=== PATIENT | female | born 1955 | race Caucasian/White ===

== ENCOUNTER 2017-03-14 09:08 | Inpatient (IN) | payer BC, OTHER ==
[~2017-03-14] VITALS: Ht 162.6 cm; Wt 68.4 kg
[2017-03-14] MEDS ORDERED: KETOROLAC TROMETH 60MG/2ML VIAL IM ONE (10:00)
[2017-03-14] MEDS ORDERED: SODIUM CHLORIDE 0.9% 1,000 ML IV ONE (10:45)
[2017-03-14] MEDS ORDERED: ETOMIDATE (2MG/ML) 20ML VIAL IV ONE (11:15)
[2017-03-14 11:24] LABS: Basophils # (auto) 0 uL; CONDITION Y; Eosinophils # (auto) 0 uL; Hematocrit 37.6 % (36.0-46.0); Hemoglobin 12.9 g/dL (12.2-16.2); Lymphocytes # (auto) 0.6 uL; Lymphocytes % (auto) 4.2 % (10.0-50.0); Mean Corpuscular Hemoglobin 30.8 pg (28.0-32.0); Mean Corpuscular Hgb Conc. 34.3 g/dL (32.0-36.0); Mean Corpuscular Volume 89.7 fL (80.0-100.0); Mean Platelet Volume 8.7 fL (7.4-10.4); Monocytes # (auto) 0.7 uL; Monocytes % (auto) 4.6 % (0.0-12.0); Neutrophils # (auto) 12.9 uL; Neutrophils % (auto) 91.2 % (37.0-80.0); Platelet Count (auto) 247 10^3/uL (140-450); Red Cell Distribution Width 12.9 % (11.6-16.0); White Blood Cell 14.1 10^3/uL (4.4-10.8)
[2017-03-14 11:30] LABS: INR 0.96 (0.9-1.15); Partial Thromboplastin Time 23.1 sec (22.64-33.71); Prothrombin Time 10.5 sec (9.37-12.3)
[2017-03-14 11:35] LABS: Albumin 3.7 g/dL (3.4-5.0); BUN/Creatinine Ratio 23.8; Bilirubin, Total 0.6 mg/dL (0.2-1.0); Calcium 8.7 mg/dL (8.5-10.1); Potassium 3.3 mmol/L (3.5-5.1); Total Protein 6.7 g/dL (6.4-8.2)
[2017-03-14] MEDS ORDERED: MORPHINE SULF INJ 2 MG/ML SYRINGE 1ML IV ONE (11:45)
[2017-03-14] MEDS ORDERED: ONDANSETRON HCL 4 MG/2 ML VIAL IV ONE (11:45)
[2017-03-14] MEDS ORDERED: HYDROcodone-ACET 5/325MG TAB PO PRN (15:30)
[2017-03-14] MEDS ORDERED: ACETAMINOPHEN 500 MG TAB PO PRN (15:30)
[2017-03-14] MEDS ORDERED: LACTULOSE 20Gm/30ML SOLN PO PRN (15:30)
[2017-03-14] MEDS ORDERED: TEMAZEPAM 15 MG CAP PO PRN (15:30)
[2017-03-14] MEDS ORDERED: LORazepam 0.5 MG TAB PO PRN (15:30)
[2017-03-14] MEDS ORDERED: NITROGLYCERIN 0.4 MG SL TAB SL PRN (15:30)
[2017-03-14] MEDS ORDERED: PROMETHAZINE HCL 25 MG/ML 1ML IV PRN (15:30)
[2017-03-14] MEDS ORDERED: MORPHINE SULF INJ 2 MG/ML SYRINGE 1ML IV PRN (15:30)
[2017-03-14] MEDS: SODIUM CHLORIDE 0.9% 1,000 ML IV SCH ×2 (15:48→22:47)
[2017-03-14] MEDS ORDERED: BENAZEPRIL-HCTZ (15:48)
[2017-03-14] MEDS ORDERED: AMLO10TA2 PO (15:48)
[2017-03-14 22:00] VITALS: BP 102/63
[2017-03-14 22:45] VITALS: BP 102/63
[2017-03-14] MEDS: MORPHINE SULFATE 4 MG/ML SYRG IV PRN (23:13)
[2017-03-15] MEDS: MORPHINE SULFATE 4 MG/ML SYRG IV PRN (04:49)
[2017-03-15 05:00] VITALS: BP 102/59
[2017-03-15 08:00] VITALS: BP 102/48
[2017-03-15 09:00] VITALS: BP 102/48
[2017-03-15] MEDS ORDERED: amLODIPine BESYLATE 5 MG TAB PO SCH (10:00)
[2017-03-15] MEDS: SODIUM CHLORIDE 0.9% 1,000 ML IV SCH ×2 (10:02→21:03)
[2017-03-15] MEDS: BENAZEPRIL HCL 10 MG TAB PO SCH (10:02)
[2017-03-15 13:00] VITALS: BP 102/52
[2017-03-15] MEDS ORDERED: POTASSIUM CHL 20 Meq TABLET PO ONE (16:15)
[2017-03-15 16:58] LABS: Urine Bilirubin Negative (Negative); Urine Blood Negative /uL (Negative); Urine Color Colorless (Yellow); Urine Glucose Normal (Normal); Urine Ketone Negative (Negative); Urine Nitrite Negative (Negative); Urine RBC <1 /hpf (0 - 4); Urine Urobilinogen Normal (Negative)
[2017-03-15 17:00] VITALS: BP 87/47
[2017-03-15 22:00] VITALS: BP 100/49
[2017-03-16 05:13] LABS: Basophils # (auto) 0 uL; Basophils % (auto) 0.5 % (0.0-2.0); CONDITION Y; Eosinophils # (auto) 0.1 uL; Hemoglobin 9.1 g/dL (12.2-16.2); Lymphocytes # (auto) 1.5 uL; Lymphocytes % (auto) 26.3 % (10.0-50.0); Mean Corpuscular Hemoglobin 31.1 pg (28.0-32.0); Mean Corpuscular Hgb Conc. 33.8 g/dL (32.0-36.0); Mean Corpuscular Volume 91.9 fL (80.0-100.0); Mean Platelet Volume 8.7 fL (7.4-10.4); Monocytes # (auto) 0.7 uL; Monocytes % (auto) 11.2 % (0.0-12.0); Neutrophils # (auto) 3.5 uL; Platelet Count (auto) 151 10^3/uL (140-450); Red Cell Distribution Width 12.8 % (11.6-16.0); White Blood Cell 5.9 10^3/uL (4.4-10.8)
[2017-03-16 05:38] LABS: BUN/Creatinine Ratio 23.2; Calcium 7.4 mg/dL (8.5-10.1)
[2017-03-16 05:44] VITALS: BP 105/54
[2017-03-16 08:00] VITALS: BP 104/66
[2017-03-16 09:00] VITALS: BP 104/66
[2017-03-16 09:04] LABS: Hematocrit 28.6 % (36.0-46.0); Hemoglobin 9.9 g/dL (12.2-16.2)
[2017-03-16] MEDS: SODIUM CHLORIDE 0.9% 1,000 ML IV SCH ×2 (09:49→18:38)
[2017-03-16] MEDS: BENAZEPRIL HCL 10 MG TAB PO SCH (09:49)
[2017-03-16] MEDS ORDERED: PHENYLEPHRINE HCL 10 MG/ML VL IV ONE (10:25)
[2017-03-16] MEDS ORDERED: ceFAZolin 1GM/50ML D5W 100 ML IV ONE (11:31)
[2017-03-16] MEDS ORDERED: BUPIVACAINE 0.25% INJ 50ML VIAL ONE (12:07)
[2017-03-16] MEDS ORDERED: BUPIVACAINE W/ EPINEPH 0.25% INJ 50ML MDV ONE (12:07)
[2017-03-16] MEDS ORDERED: fentaNYL CITRATE 100 MCG/2 ML VL ONE (12:27)
[2017-03-16] MEDS ORDERED: MIDAZOLAM HCL 1MG/1ML-2 ML VIAL ONE (12:28)
[2017-03-16] MEDS ORDERED: MEPERIDINE HCL (50 MG/ML) 1 ML VIAL ONE (12:28)
[2017-03-16] MEDS ORDERED: DEXAMETHASONE SOD PHOS 10MG/1ML VIAL INJ ONE (12:53)
[2017-03-16] MEDS ORDERED: PROPOFOL 10 MG/ML 20 ML IV ONE (12:54)
[2017-03-16] MEDS ORDERED: KETOROLAC TROMETH 30 MG/ML 1ML VIAL IV ONE (13:15)
[2017-03-16] MEDS ORDERED: HYDROmorphone HCL 2 MG/ML VL IV PRN ×2 (13:15→17:30)
[2017-03-16] MEDS ORDERED: ePHEDrine SULFATE 50 MG/ML AMP IV PRN (13:15)
[2017-03-16] MEDS ORDERED: hydrALAZINE HCL 20 MG/ML VL IV PRN (13:15)
[2017-03-16] MEDS ORDERED: LABETALOL HCL 5 MG/ML 4ML SYRINGE IV PRN (13:15)
[2017-03-16] MEDS ORDERED: MORPHINE SULF INJ 2 MG/ML SYRINGE 1ML IV PRN (13:15)
[2017-03-16] MEDS ORDERED: MIDAZOLAM HCL 1MG/1ML-2 ML VIAL IV PRN (13:15)
[2017-03-16] MEDS ORDERED: ONDANSETRON HCL 4 MG/2 ML VIAL IV ONE (13:15)
[2017-03-16] MEDS ORDERED: KETOROLAC TROMETH 30 MG/ML 1ML VIAL ONE (13:28)
[2017-03-16 15:44] LABS: Hematocrit 24.5 % (36.0-46.0); Hemoglobin 8.4 g/dL (12.2-16.2)
[2017-03-16 17:06] VITALS: BP 104/63
[2017-03-16] MEDS ORDERED: HYDROcodone-ACET 10/325MG TAB PO PRN (17:30)
[2017-03-16] MEDS: MORPHINE SULFATE 4 MG/ML SYRG IV PRN ×2 (19:10→22:58)
[2017-03-16] MEDS: ceFAZolin 1GM/50ML D5W 50 ML IV SCH (21:27)
[2017-03-16 21:30] VITALS: BP 94/53
[2017-03-17] VITALS (15 sets, daily range): BP systolic 91–125; BP diastolic 46–87
[2017-03-17] MEDS: MORPHINE SULFATE 4 MG/ML SYRG IV PRN ×3 (02:59→16:35)
[2017-03-17] MEDS: SODIUM CHLORIDE 0.9% 1,000 ML IV SCH ×2 (03:09→13:06)
[2017-03-17] MEDS: ceFAZolin 1GM/50ML D5W 50 ML IV SCH ×3 (05:43→21:59)
[2017-03-17 06:14] LABS: Basophils # (auto) 0 uL; CONDITION Y; DEFINITIVE SEE PRINTOUT; Eosinophils # (auto) 0 uL; Hematocrit 21.2 % (36.0-46.0); Hemoglobin 7.4 g/dL (12.2-16.2); Lymphocytes # (auto) 0.6 uL; Lymphocytes % (auto) 7.7 % (10.0-50.0); Mean Corpuscular Hemoglobin 31.6 pg (28.0-32.0); Mean Corpuscular Hgb Conc. 34.8 g/dL (32.0-36.0); Mean Corpuscular Volume 90.9 fL (80.0-100.0); Mean Platelet Volume 8.3 fL (7.4-10.4); Monocytes # (auto) 0.5 uL; Neutrophils # (auto) 6.9 uL; Neutrophils % (auto) 86.3 % (37.0-80.0); Platelet Count (auto) 135 10^3/uL (140-450); Red Cell Distribution Width 12.9 % (11.6-16.0); White Blood Cell 7.9 10^3/uL (4.4-10.8)
[2017-03-17 06:35] LABS: BUN/Creatinine Ratio 24.5; Calcium 6.7 mg/dL (8.5-10.1); Potassium 3.9 mmol/L (3.5-5.1)
[2017-03-18] MEDS: MORPHINE SULFATE 4 MG/ML SYRG IV PRN (00:29)
[2017-03-18] MEDS: SODIUM CHLORIDE 0.9% 1,000 ML IV SCH (04:29)
[2017-03-18 04:59] VITALS: BP_SYST 109; BP_SYST 120; BP_DIAS 55; BP_DIAS 61
[2017-03-18 06:15] LABS: Basophils # (auto) 0 uL; Basophils % (auto) 0.2 % (0.0-2.0); CONDITION Y; Eosinophils # (auto) 0.1 uL; Eosinophils % (auto) 2.3 % (0.0-7.0); Hematocrit 36.5 % (36.0-46.0); Hemoglobin 12.4 g/dL (12.2-16.2); Lymphocytes # (auto) 1.2 uL; Lymphocytes % (auto) 20.4 % (10.0-50.0); Mean Corpuscular Hemoglobin 30.1 pg (28.0-32.0); Mean Corpuscular Hgb Conc. 33.8 g/dL (32.0-36.0); Mean Corpuscular Volume 89.1 fL (80.0-100.0); Mean Platelet Volume 8.6 fL (7.4-10.4); Monocytes # (auto) 0.5 uL; Monocytes % (auto) 8.4 % (0.0-12.0); Neutrophils # (auto) 4.1 uL; Neutrophils % (auto) 68.7 % (37.0-80.0); Platelet Count (auto) 156 10^3/uL (140-450)
[2017-03-18] MEDS: ceFAZolin 1GM/50ML D5W 50 ML IV SCH (06:15)
[2017-03-18 08:00] VITALS: BP 125/65
[2017-03-18 09:00] VITALS: BP_SYST 105; BP_SYST 125; BP_DIAS 55; BP_DIAS 65
[2017-03-18 12:09] VITALS: BP 125/65
== END 2017-03-18 12:46 | disposition home or self-care (01) | DRG 483 ==
LOC: ER 09:12 → TELE 09:13 → TELE-WESTW 22:10 → WEST WING 03-15 18:07
PROVIDERS: ADMIT Internal Medicine; ATTEND Internal Medicine
PROC: 0LS30ZZ Reposition Right Upper Arm Tendon, Open Approach (ICD-10-PCS; 2017-03-16)
PROC: 0LS30ZZ Reposition Right Upper Arm Tendon, Open Approach (ICD-10-PCS; 2017-03-16)
PROC: 0RRJ0J6 Replacement of Right Shoulder Joint with Synthetic Substitute, Humeral Surface, Open Approach (ICD-10-PCS; principal; 2017-03-16 12:08)
DX: S42.201A Unspecified fracture of upper end of right humerus, initial encounter for closed fracture (principal); I10 Essential (primary) hypertension; E87.6 Hypokalemia; M75.41 Impingement syndrome of right shoulder; D64.9 Anemia, unspecified; K80.20 Calculus of gallbladder without cholecystitis without obstruction; M75.20 Bicipital tendinitis, unspecified shoulder; M75.91 Shoulder lesion, unspecified, right shoulder; D72.829 Elevated white blood cell count, unspecified; V87.8XXA Person injured in other specified noncollision transport accidents involving motor vehicle (traffic), initial encounter; Z90.710 Acquired absence of both cervix and uterus; Y92.89 Other specified places as the place of occurrence of the external cause; Y99.8 Other external cause status; Z85.42 Personal history of malignant neoplasm of other parts of uterus; Y93.55 Activity, bike riding
CPT/HCPCS: 36415; 70450; 71250; 72125; 73020; 73030; 73200; 74176; 80048; 80053; 81001; 85014; 85018; 85025; 85610; 85730; 86850; 86900; 86901; 86920; 93306; 96361; 96372; 96374; 96375; 96376; J0690; J1100; J1885; J2250; J2405; J2704; J3490

== ENCOUNTER 2017-04-29 20:50 | Inpatient (IN) | payer BC, OTHER ==
[~2017-04-29] VITALS: Ht 162.6 cm; Wt 63.5 kg
[~2017-04-29 20:50] MED LIST: AMLO10TA2 PO; BENAZEPRIL-HCTZ
[2017-04-29 22:35] LABS: Basophils # (auto) 0 uL; Basophils % (auto) 0.3 % (0.0-2.0); Eosinophils # (auto) 0 uL; Eosinophils % (auto) 0.1 % (0.0-7.0); Hematocrit 49.8 % (36.0-46.0); Hemoglobin 16.8 g/dL (12.2-16.2); Lymphocytes % (auto) 16.7 % (10.0-50.0); Mean Corpuscular Hemoglobin 30.4 pg (28.0-32.0); Mean Corpuscular Hgb Conc. 33.7 g/dL (32.0-36.0); Mean Corpuscular Volume 90.1 fL (80.0-100.0); Mean Platelet Volume 8.4 fL (6.9-10.8); Neutrophils # (auto) 9.2 uL; Neutrophils % (auto) 74.9 % (37.0-80.0); Nucleated Red Blood Cells % 0.1 %; Platelet Count (auto) 287 10^3/uL (140-450); Red Cell Distribution Width 13.6 % (11.8-14.3); White Blood Cell 12.3 10^3/uL (4.4-10.8)
[2017-04-29 22:51] LABS: Albumin 4.3 g/dL (3.4-5.0); Anion Gap 13 (5-15); Aspartate Aminotransferase 17 U/L (15-37); BUN/Creatinine Ratio 26.2; Blood Urea Nitrogen 34 mg/dL (7-18); Calcium 9.8 mg/dL (8.5-10.1); Carbon Dioxide 29 mmol/L (21-32); Chloride 102 mmol/L (98-107); GFR African American 53 mL/min; GFR Non-African American 44 mL/min; Glucose 146 mg/dL (74-106); Magnesium 2.3 mg/dL (1.6-2.6); Potassium 3.8 mmol/L (3.5-5.1); Sodium 144 mmol/L (136-145)
[2017-04-29 22:56] LABS: Alkaline Phosphatase 54 U/L (45-117); Bilirubin, Total 1.3 mg/dL (0.2-1.0); Total Protein 8.1 g/dL (6.4-8.2)
[2017-04-30] MEDS ORDERED: SODIUM CHLORIDE 0.9% 1,000 ML IVB ONE (06:27)
[2017-04-30] MEDS ORDERED: PROMETHAZINE HCL 25 MG/ML 1ML IV PRN ×2 (06:30→14:30)
[2017-04-30] MEDS ORDERED: HYDROmorphone HCL 2 MG/ML VL IV ONE ×2 (06:30→13:00)
[2017-04-30 07:11] LABS: INR 0.99 (0.9-1.15); Partial Thromboplastin Time 25.2 sec (22.64-33.71); Prothrombin Time 10.8 sec (9.37-12.3)
[2017-04-30 08:31] LABS: Urine Blood Negative /uL (Negative); Urine Color Yellow (Yellow); Urine Glucose Normal (Normal); Urine Hyaline Cast MANY /lpf (0 - 2); Urine Ketone TRACE (Negative); Urine Mucus FEW (None Seen); Urine Nitrite Negative (Negative); Urine RBC 1 /hpf (0 - 4); Urine Squamous Epithelial Cell FEW /hpf (<5)
[2017-04-30 08:36] LABS: Urine Bilirubin Negative (Negative)
[2017-04-30] MEDS ORDERED: GASTROGRAFIN 120 ML SOL ONE (09:20)
[2017-04-30] MEDS ORDERED: PROMETHAZINE HCL 25 MG/ML 1ML IV ONE (13:00)
[2017-04-30] MEDS ORDERED: MORPHINE SULF INJ 2 MG/ML SYRINGE 1ML IV PRN (14:30)
[2017-04-30] MEDS ORDERED: PANTOPRAZOLE 40 MG/10 ML VIAL IV ONE (14:30)
[2017-04-30] MEDS ORDERED: DEXTROSE (50%) 50ML SYRG IV PRN (14:30)
[2017-04-30] MEDS ORDERED: LORazepam 2MG/ML-1ML VIAL IV PRN (14:30)
[2017-04-30] MEDS ORDERED: cefTRIAXone 1GM/50ML D5W 50 ML IV ONE (14:30)
[2017-04-30] MEDS ORDERED: ENOXAPARIN SOD 40 MG/0.4 ML SYRINGE SC ONE (14:45)
[2017-04-30] MEDS ORDERED: metroNIDAZOLE 500MG/100ML 100 ML IV ONE (14:45)
[2017-04-30] MEDS: SODIUM CHLORIDE 0.9% 1,000 ML IV SCH ×2 (14:56→22:30)
[2017-04-30 15:35] VITALS: BP 130/77
[2017-04-30] MEDS: metroNIDAZOLE 500MG/100ML 100 ML IV SCH ×2 (17:07→23:32)
[2017-04-30] MEDS: ACCU-CHEK COMFORT CURVE STRIP VI SCH ×2 (17:47→23:52)
[2017-04-30] MEDS: MORPHINE SULF INJ 2 MG/ML SYRINGE 1ML IV PRN ×2 (18:46→23:45)
[2017-04-30 19:00] VITALS: BP 122/78
[2017-04-30 20:00] VITALS: BP 122/78
[2017-04-30 22:00] VITALS: BP 122/78
[2017-05-01 05:00] VITALS: BP 121/73
[2017-05-01] MEDS: metroNIDAZOLE 500MG/100ML 100 ML IV SCH ×2 (05:29→12:25)
[2017-05-01] MEDS: ACCU-CHEK COMFORT CURVE STRIP VI SCH ×2 (06:12→12:23)
[2017-05-01 06:54] LABS: Basophils # (auto) 0.1 uL; Basophils % (auto) 0.8 % (0.0-2.0); Eosinophils # (auto) 0.2 uL; Eosinophils % (auto) 2.5 % (0.0-7.0); Hematocrit 37.8 % (36.0-46.0); Hemoglobin 12.7 g/dL (12.2-16.2); Lymphocytes # (auto) 1.9 uL; Lymphocytes % (auto) 26.4 % (10.0-50.0); Mean Corpuscular Hemoglobin 30.4 pg (28.0-32.0); Mean Corpuscular Hgb Conc. 33.8 g/dL (32.0-36.0); Mean Corpuscular Volume 90.2 fL (80.0-100.0); Mean Platelet Volume 8.3 fL (6.9-10.8); Monocytes # (auto) 0.8 uL; Monocytes % (auto) 11.9 % (0.0-12.0); Neutrophils # (auto) 4.1 uL; Neutrophils % (auto) 58.4 % (37.0-80.0); Platelet Count (auto) 179 10^3/uL (140-450); Red Cell Distribution Width 13.7 % (11.8-14.3); White Blood Cell 7.1 10^3/uL (4.4-10.8)
[2017-05-01 07:08] LABS: Calcium 7.3 mg/dL (8.5-10.1)
[2017-05-01 07:14] LABS: Albumin 2.8 g/dL (3.4-5.0); BUN/Creatinine Ratio 58.9; Bilirubin, Total 0.6 mg/dL (0.2-1.0); Total Protein 5.2 g/dL (6.4-8.2)
[2017-05-01 07:21] LABS: Potassium 2.9 mmol/L (3.5-5.1)
[2017-05-01 09:27] VITALS: BP 122/74
[2017-05-01] MEDS: ENOXAPARIN SOD 40 MG/0.4 ML SYRINGE SC SCH (09:45)
[2017-05-01] MEDS: PANTOPRAZOLE 40 MG/10 ML VIAL IV SCH (09:46)
[2017-05-01] MEDS: cefTRIAXone 1GM/50ML D5W 50 ML IV SCH (09:46)
[2017-05-01] MEDS: SODIUM CHLORIDE 0.9% 1,000 ML IV SCH ×2 (09:46→14:50)
[2017-05-01 13:00] VITALS: BP 126/73
[2017-05-01] MEDS ORDERED: POTASSIUM CHL 20 Meq TABLET PO ONE (15:30)
[2017-05-01 16:55] VITALS: BP 130/73
[2017-05-01 21:42] VITALS: BP 138/77
[2017-05-02 05:00] VITALS: BP 134/68
[2017-05-02 07:08] LABS: Calcium 8.5 mg/dL (8.5-10.1); Potassium 3.6 mmol/L (3.5-5.1)
[2017-05-02 07:51] VITALS: BP 118/70
[2017-05-02] MEDS: ENOXAPARIN SOD 40 MG/0.4 ML SYRINGE SC SCH (09:15)
[2017-05-02] MEDS: cefTRIAXone 1GM/50ML D5W 50 ML IV SCH (09:15)
[2017-05-02] MEDS: PANTOPRAZOLE 40 MG/10 ML VIAL IV SCH (09:15)
[2017-05-02 12:00] VITALS: BP 123/71
[2017-05-02] MEDS ORDERED: SODIUM CHLORIDE 0.9% 1,000 ML IV SCH (14:26)
[2017-05-02] MEDS ORDERED: DOXY-216 PO (14:32)
== END 2017-05-02 15:45 | disposition home or self-care (01) | DRG 391 ==
LOC: ER 20:50 → OVERFLOW 20:51 → WEST WING 04-30 15:43
PROVIDERS: ADMIT Internal Medicine; ATTEND Internal Medicine
DX: K59.00 Constipation, unspecified (principal); N17.0 Acute kidney failure with tubular necrosis; N39.0 Urinary tract infection, site not specified; K80.10 Calculus of gallbladder with chronic cholecystitis without obstruction; N28.1 Cyst of kidney, acquired; I10 Essential (primary) hypertension; E87.6 Hypokalemia; N28.9 Disorder of kidney and ureter, unspecified; R73.9 Hyperglycemia, unspecified; F41.9 Anxiety disorder, unspecified; T47.4X5A Adverse effect of other laxatives, initial encounter; Z79.899 Other long term (current) drug therapy; Z85.42 Personal history of malignant neoplasm of other parts of uterus; Z90.710 Acquired absence of both cervix and uterus; Y92.89 Other specified places as the place of occurrence of the external cause
CPT/HCPCS: 36415; 71020; 74176; 74250; 76705; 80048; 80053; 81001; 82150; 82962; 83036; 83690; 83735; 84132; 84484; 85025; 85610; 85652; 85730; 86141; 86850; 86900; 86901; 87086; 87088; 87186; 93005; C9113; J0696; J3490

== ENCOUNTER 2018-04-19 15:13 | Day surgery (SDC) | payer BC ==
[2018-04-16 10:45] LABS: Hematocrit 44.2 % (36.0-46.0); Hemoglobin 15.1 g/dL (12.2-16.2); Mean Corpuscular Hemoglobin 30.4 pg (28.0-32.0); Mean Corpuscular Volume 89.2 fL (80.0-100.0); Platelet Count (auto) 219 10^3/uL (140-450); Red Blood Cells 4.96 10^6/uL (4.0-5.20); Red Cell Distribution Width 13.3 % (11.8-14.3)
[2018-04-16 10:47] LABS: Urine Bacteria NONE SEEN /hpf (None Seen); Urine Blood Negative /uL (Negative); Urine Mucus FEW (None Seen); Urine Specific Gravity 1.024 (1.001-1.035); Urine WBC 1 /hpf (0 - 5)
[2018-04-16 10:50] LABS: Band Neutrophils % (manual) 0; Basophils % (manual) 0 (0.0-2.0); Blast Cells 0; Metamyelocytes % 0; Myelocytes % 0; Promyelocytes % 0; Reactive Lymphocytes 0
[2018-04-16 11:02] LABS: BUN/Creatinine Ratio 19.3; Calcium 8.9 mg/dL (8.5-10.1); Potassium 3.7 mmol/L (3.5-5.1)
[2018-04-16 11:06] LABS: INR 0.93 (0.9-1.15); Partial Thromboplastin Time 26.8 sec (23.78-33.04)
[2018-04-16 11:16] LABS: Eosinophils % (manual) 19 (0-7); Lymphocytes % (manual) 26 (10.0-50.0); Monocytes % (manual) 10 (0-12)
[~2018-04-19] VITALS: Ht 162.6 cm; Wt 61.2 kg
[2018-04-19] MEDS ORDERED: MORPHINE SULFATE 4 MG/ML SYR/VIAL IV PRN (16:00)
[2018-04-19] MEDS ORDERED: MIDAZOLAM HCL 1MG/1ML-2 ML VIAL IV PRN (16:00)
[2018-04-19] MEDS ORDERED: LABETALOL HCL 5 MG/ML 4ML SYRINGE IV PRN (16:00)
[2018-04-19] MEDS ORDERED: ONDANSETRON HCL 4 MG/2 ML VIAL IV ONE (16:00)
[2018-04-19] MEDS ORDERED: HYDROmorphone HCL 2 MG/ML VL IV PRN (16:00)
[2018-04-19] MEDS ORDERED: MORPHINE SULFATE 4 MG/ML SYR/VIAL IV ONE (16:00)
[2018-04-19] MEDS ORDERED: ePHEDrine SULFATE 50 MG/ML AMP IV PRN (16:00)
[2018-04-19] MEDS ORDERED: KETOROLAC TROMETH 30 MG/ML 1ML VIAL IV ONE (16:00)
[2018-04-19] MEDS ORDERED: RHO (D) IMMUNE GLOBULIN 300 MCG INJ IM PRN (16:15)
[2018-04-19] MEDS ORDERED: fentaNYL CITRATE 100 MCG/2 ML VL ONE (16:53)
[2018-04-19] MEDS ORDERED: MEPERIDINE HCL (50 MG/ML) 1 ML VIAL ONE (16:54)
[2018-04-19] MEDS ORDERED: MIDAZOLAM HCL 1MG/1ML-2 ML VIAL ONE (16:54)
[2018-04-19] MEDS ORDERED: PHENYLEPHRINE HCL 10 MG/ML VL IV ONE (17:05)
[2018-04-19] MEDS ORDERED: ceFAZolin 1GM/50ML 50 ML IV ONE (17:13)
[2018-04-19] MEDS ORDERED: BENZOCAINE (DENTAL) 20 % SPRAY 60ML MT ONE (17:21)
[2018-04-19] MEDS ORDERED: BUPIVACAINE 0.25% INJ 50ML VIAL ONE (17:23)
[2018-04-19] MEDS ORDERED: LIDOCAINE W/ EPINEPHRINE 1 % INJ 30ML ONE (17:23)
[2018-04-19] MEDS ORDERED: VASOPRESSIN 20 UNIT/ML ONE (17:38)
[2018-04-19] MEDS ORDERED: CONJ ESTROGENS 0.625MG/GM VAG CRM 30GM PV ONE (17:39)
[2018-04-19] MEDS ORDERED: DEXAMETHASONE SOD PHOS 10MG/1ML VIAL INJ ONE (17:50)
[2018-04-19] MEDS ORDERED: PROPOFOL 10 MG/ML 20 ML IV ONE (17:50)
[2018-04-19] MEDS ORDERED: SUCCINYLCHOLINE CHLORIDE 20 MG/ML 10ML VIAL IV ONE (18:11)
[2018-04-19 19:44] VITALS: BP 124/87
== END 2018-04-19 19:54 | disposition home or self-care (01) ==
LOC: SUR 15:13
PROVIDERS: ATTEND Obstetrics & Gynecology
DX: N81.6 Rectocele (principal); N81.5 Vaginal enterocele; N89.8 Other specified noninflammatory disorders of vagina; N81.10 Cystocele, unspecified; Z90.710 Acquired absence of both cervix and uterus; Z85.42 Personal history of malignant neoplasm of other parts of uterus; Z96.611 Presence of right artificial shoulder joint; I10 Essential (primary) hypertension; Z79.899 Other long term (current) drug therapy; Z90.721 Acquired absence of ovaries, unilateral
CPT/HCPCS: 36415; 45560; 57135; 57282; 80048; 81001; 85007; 85027; 85610; 85730; 87086; 88305; 88342; J0330; J0690; J1100; J2001; J2175; J2250; J2370; J2704; J3010; J3490

== ENCOUNTER 2018-05-07 11:53 | Emergency (ER) | payer BC ==
[~2018-05-07] VITALS: Ht 162.6 cm; Wt 61.2 kg
[2018-05-07 12:07] VITALS: BP 143/69
[2018-05-07] MEDS ORDERED: cefTRIAXone SOD 1,000 MG VL IM ONE (14:00)
== END 2018-05-07 14:26 | disposition home or self-care (01) ==
LOC: ER 11:53
DX: N39.0 Urinary tract infection, site not specified (principal); I10 Essential (primary) hypertension; Z90.710 Acquired absence of both cervix and uterus
CPT/HCPCS: 96372; 99283; J0696

== ENCOUNTER 2018-05-23 11:08 | Emergency (ER) | payer BC ==
[~2018-05-23] VITALS: Ht 162.6 cm; Wt 65.8 kg
[2018-05-23 11:51] LABS: Urine Bacteria FEW /hpf (None Seen); Urine Blood Negative /uL (Negative); Urine Specific Gravity 1.007 (1.001-1.035); Urine WBC 16 /hpf (0 - 5)
[2018-05-23 13:19] VITALS: BP 153/57
== END 2018-05-23 14:00 | disposition home or self-care (01) ==
LOC: ER 11:09
DX: N39.0 Urinary tract infection, site not specified (principal); I10 Essential (primary) hypertension
CPT/HCPCS: 81001; 87086

== ENCOUNTER 2018-06-08 08:27 | Emergency (ER) | payer BC ==
[~2018-06-08] VITALS: Ht 162.6 cm; Wt 61.2 kg
[2018-06-08 08:39] VITALS: BP 157/69
[2018-06-08 09:17] LABS: Urine Bacteria NONE SEEN /hpf (None Seen); Urine Blood Negative /uL (Negative); Urine Specific Gravity 1.008 (1.001-1.035); Urine WBC 4 /hpf (0 - 5)
== END 2018-06-08 09:51 | disposition home or self-care (01) ==
LOC: ER 08:31
DX: N39.0 Urinary tract infection, site not specified (principal); I10 Essential (primary) hypertension; Z90.710 Acquired absence of both cervix and uterus
CPT/HCPCS: 81001